=== PATIENT | female | born 1995 | race Caucasian/White ===

== ENCOUNTER 2016-12-21 15:11 | Outpatient (CLI) | payer OTHER ==
--- NOTE | 2016-12-21 15:38 | DIAGNOSTIC IMAGING REPORT ---
PROCEDURE: XR FOOT 3 VIEWS - LEFT INDICATION: L FOOT PAIN TECHNIQUE: Three views of the left foot. COMPARISON: None. FINDINGS: Normal mineralization. No fractures. Normal osseous alignment. No suspicious soft-tissue calcification or radiodense foreign bodies. IMPRESSION: 1. Normal left foot.
== END 2016-12-21 23:00 ==
LOC: XR SRH 15:11
DX: M25.572 Pain in left ankle and joints of left foot (principal)